=== PATIENT | male | born 2005 | race Caucasian/White ===

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

== ENCOUNTER 2024-06-03 11:29 | Emergency (ER) | payer OTHER ==
[~2024-06-03] VITALS: Ht 172.7 cm; Wt 48.3 kg
[~2024-06-03 11:29] MED LIST changes: +PRILOSEC OTC20 MG PO
--- OUTSIDE RECORDS SUMMARY | 2024-06-03 11:36 | XMS ---
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 - Patient eloped before treatment completed. - Patient with suicidal and/or homicidal ideations eloped. Details: Patient LWBS CRITERIA MET - Group Notification CARE PROVIDERS -[facility] Dentist: [employer] [facility] PHONE: [phone] -Eva- Dentist: [employer] [facility] PHONE: [phone] SAMANTHA COLLAZO [facility] Current PHONE: [phone] NISHI ROBLES [employer] T[employer] Agent: Clinical Current PHONE: [phone] Care Guidelines exist for the following facilities: [facility] ( 04/12/2019 ) [place] VISIT COUNT (12 MO.) 2 [facility]ICI Reyes TOTAL 2 NOTE: Visits indicate total known visits. ED/UCC VISIT TRACKING (12 MO.) 06/03/2024 11:29 [facility] [place] TYPE: Emergency COMPLAINT: - HEART RATE ISSUE 08/10/2023 12:24 [facility] [place] TYPE: Emergency COMPLAINT: - ANXIETY, HEADACHE, DIZZY INPATIENT VISIT TRACKING (12 MO.) No inpatient visits to display in this time frame [email or web address]
[2024-06-03 13:33] LABS: HEMATOCRIT 44.9 % (35.0-50.0); HEMOGLOBIN 15.5 g/dL (12.0-18.0); MCHC 34.6 g/dl (30-36)
[2024-06-03 13:35] LABS: BASOPHILS 0.4 % (0-2); EOSINOPHILS 2.1 % (0-6); MCH 33.2 (27-36); MCV 95.8 fl (81-99); MONOCYTES 9.6 % (0-12); NEUTROPHILS 54.9 % (39-80); PLATELET COUNT 214 K/uL (140-440); RBC 4.68 M/ul (4.3-5.7); RDW 12.8 (10.5-15.0)
[2024-06-03 13:52] LABS: ALBUMIN 4.1 g/dL (3.4-5.0); ALBUMIN/GLOBULIN RATIO 1.17 (1.1-2.4); ALKALINE PHOSPHATASE 81 U/L (46-116); ALT (SGPT) 27 U/L (14-59); ANION GAP 12.2 (7-21); AST (SGOT) 22 U/L (15-37); BILIRUBIN, TOTAL 0.9 ng/dL (0.2-1.0); CALCIUM 9.1 mg/dL (8.5-10.1); CARBON DIOXIDE 28 mmol/L (21-32); CHLORIDE 104 mmol/L (98-107); CREATININE, SERUM 0.88 mg/dL (0.70-1.30); GLOMERULAR FILTRATION RATE,EST 126 mL/min (>60); MAGNESIUM 2.1 mg/dL (1.8-2.4); POTASSIUM 4.2 mmol/L (3.5-5.1); PROTEIN, TOTAL 7.6 g/dL (6.4-8.2); UREA NITROGEN 11 mg/dL (7-18)
[2024-06-03 15:14] VITALS: BP 98/73
--- NOTE | 2024-06-06 14:37 | EKG ---
[facility] [address] [facility] [place], [place] [address] Signed Sinus rhythm with short [place] Otherwise normal ECG When compared with ECG of 13-MAY-2022 15:10, No significant change was found Confirmed by Dawson Hurt MD ([id number]) on 06/06/2024 2:37:02 PM Electronically Signed By: DAWSON HURT DO 06/06/24 1437 PATIENT NAME: DAYSI HOLDEN SAVANNAH Electrocardiogram DATE OF : [birth year] PHYSICIAN: DAWSON HURT DO REPORT #: [id number] REPORT IS CONFIDENTIAL AND NOT TO BE RELEASED WITHOUT AUTHORIZATION
== END 2024-06-03 15:14 | disposition home or self-care (01) ==
LOC: ED 11:29
PROVIDERS: Emergency Medicine
DX: R07.89 Other chest pain (principal); Z79.899 Other long term (current) drug therapy
CPT/HCPCS: 36415; 80053; 83735; 84484; 85025; 93005; 93010; 99285